=== PATIENT | male | born 1975 | race Caucasian/White ===

== ENCOUNTER 2016-11-01 19:36 | Emergency (ER) | payer BC ==
[2016-11-01 19:48] VITALS: BP 142/98
--- NOTE | 2016-11-01 20:21 | PHYS DOC ---
Past History Past Medical History: Kidney Stones Past Surgical History: No Surgical History Alcohol Use: None Drug Use: None Adult General Chief Complaint Chief Complaint: RIB PAIN HPI HPI Patient is a 41-year-old male who slipped at work and landed on his left side and now his left ribs are hurting him. He says that it hurts to move his torso take a deep breath and palpate it. He denies any head neck chest abdomen back or extremity pain or tenderness and he is in no obvious distress with normal vital signs. Review of Systems Review of Systems Constitutional: Denies fever or chills [] Respiratory: Denies cough or shortness of breath [] Cardiovascular: No additional information not addressed in HPI [] GI: Denies abdominal pain, nausea, vomiting, bloody stools or diarrhea [] : Denies dysuria or hematuria [] Musculoskeletal: Denies back pain or joint pain [] Integument: Denies rash or skin lesions [] Neurologic: Denies headache, focal weakness or sensory changes [] Allergies Allergies Allergies Coded Allergies Type Severity Reaction Last Updated Verified No Known Allergies Allergy Unknown 11/01/16 Yes Physical Exam Physical Exam Constitutional: Well developed, well nourished, no acute distress, non-toxic appearance. [] HENT: Normocephalic, atraumatic, bilateral external ears normal, oropharynx moist, no oral exudates, nose normal. [] Neck: Normal range of motion, no tenderness, supple, no stridor. [] Cardiovascular:Heart rate regular rhythm, no murmur [] Lungs & Thorax: Bilateral breath sounds clear to auscultation. Left lower chest wall on ribs 5 through 7 tenderness to palpation. There is no subcutaneous air or obvious chest wall deformity. Abdomen: Bowel sounds normal, soft, no tenderness, no masses, no pulsatile masses. [] Skin: Warm, dry, no erythema, no rash. [] Back: No tenderness, no CVA tenderness. [] Extremities: No tenderness, no cyanosis, no clubbing, ROM intact, no edema. [] Neurologic: Alert and oriented X 3, normal motor function, normal sensory function, no focal deficits noted. [] Current Patient Data Vital Signs Vital Signs Date Time Temp Pulse Resp B/P (MAP) Pulse Ox O2 Delivery O2 Flow Rate FiO2 11/01/16 19:48 98.3 85 20 97 Room Air EKG EKG [] Radiology/Procedures Radiology/Procedures Left ribs and chest x-ray revealed no obvious fracture pneumothorax or opacity or soft tissue abnormality. Course & Med Decision Making Course & Med Decision Making Patient presenting to the emergency department for evaluation of rib pain status post fall but there is no obvious deformity on chest x-ray and he appears well with normal vital signs. Will recommend rice NSAIDs PCP follow-up later this week to ensure improvement come back to the ER sooner with any worsening pain shortness of breath or other general concerns. Patient Aware and agreeable with plan and verbalized understanding of the above instructions. Dragon Disclaimer Dragon Disclaimer This chart was dictated in whole or in part using Voice Recognition software in a busy, high-work load, and often noisy Emergency Department environment. It may contain unintended and wholly unrecognized errors or omissions. Departure Departure: Impression: Primary Impression: Rib contusion Disposition: HOME, SELF-CARE Condition: GOOD Referrals: PCP,NO (PCP) Patient Instructions: Rib Contusion Additional Instructions: TAKE 400MG OF IBUPROFEN EVERY 6 HOURS AND THE NORCO FOR BREAKTHROUGH PAIN. COME BACK TO THE ED SOONER WITH ANY NEW OR WORSENING SYMPTOMS. THANK YOU! Problem Qualifiers Primary Impression: Rib contusion Encounter type: initial encounter Laterality: left Qualified Codes: S20.212A - Contusion of left front wall of thorax, initial encounter DARNELL HERNANDEZ DO Nov 01, 2016 20:21
--- NOTE | 2016-11-02 08:17 | RAD ---
Left RIBS with chest, 11/01/2016: History: Injury No fracture or rib abnormality is detected. There is no evidence of underlying pneumothorax, hemothorax or pulmonary infiltrate. IMPRESSION: No significant left rib abnormality is detected.
== END 2016-11-01 21:05 | disposition home or self-care (01) ==
LOC: ER 19:36
DX: S20.212A Contusion of left front wall of thorax, initial encounter (principal); Z87.442 Personal history of urinary calculi; W01.0XXA Fall on same level from slipping, tripping and stumbling without subsequent striking against object, initial encounter; Y93.89 Activity, other specified; Y99.8 Other external cause status; Y92.89 Other specified places as the place of occurrence of the external cause
CPT/HCPCS: 71101; 99284

== ENCOUNTER → 2019-06-11 | Day surgery (SDC) | payer BC ==
[~2019-06-11] MED LIST: ACETAMINOPHEN 325 MG TABLET PO PRN; ALBUTEROL SULFATE 2.5 MG/3 ML NEBU. NEB PRN; ATROPINE 0.5 MG/5 ML DISP.SYRIN. IV PRN; IV RINGERS SOLUTION,LACTATED 1,000 ML IV SCH; ONDANSETRON PF 4 MG/2 ML VIAL. IV PRN; PHENOL ORAL SPRAY 177ML BOTTLE. MM PRN; PROPOFOL 40 ML IV ONE; diphenhydrAMINE 50 MG/ML VIAL IV PRN
[2019-06-11 14:34] VITALS: BP 120/85
--- NOTE | 2019-06-13 14:07 | PATHOLOGY ---
[facility] Accession Number: [id number] . 01 Material submitted: . splenic flexure - SPLENIC FLEXURE . 01 Clinical history: . Screening . 02 Diagnosis: Colon biopsy, splenic flexure: - Tubular adenoma. ([facility] 06/13/2019) [facility] 06/13/2019 0919 Local . 02 Comment: There is no high-grade dysplasia or evidence of malignancy. ([facility] 06/13/2019) . 02 Electronically signed: . Manolo Hernandez MD, Pathologist NPI- [id number] . 01 Gross description: . The specimen is received in formalin, labeled "Gnade, Tray", "splenic flexure". Received is a single polypoid segment of pale bernabe soft tissue measuring 0.4 cm. The specimen is entirely submitted in cassette A1.([facility]; 06/12/2019) [facility] 06/12/2019 1846 Local . 02 Pathologist provided ICD-10: D12.3 . 02 CPT . 270261 Specimen Comment: A courtesy copy of this report has been sent [phone] Specimen Comment: [id number] Specimen Comment: Report sent to / DR DUMONT Specimen Comment: A duplicate report has been generated due to demographic updates. Performed at: 01 [facility] [address], [place] [id number] MD Ever Jha MD Phone: [phone] Performed at: 02 [facility] [address] [place], [place] [id number] MD Manolo Hernandez MD Phone: [phone]
== END ==
LOC: SURG 12:02
PROVIDERS: ATTEND Internal Medicine Gastroenterology
DX: Z12.11 Encounter for screening for malignant neoplasm of colon (principal); D12.3 Benign neoplasm of transverse colon; Z80.0 Family history of malignant neoplasm of digestive organs; Z87.442 Personal history of urinary calculi
CPT/HCPCS: 45385; 88305; J2704; J7120